=== PATIENT | male | born 1970 | race Caucasian/White ===

== ENCOUNTER → 2020-01-29 | Outpatient (CLI) | payer BC ==
--- NOTE | 2020-01-29 13:06 | RADIOLOGY REPORT (SQ) ---
EXAM DESCRIPTION: SKULL 1-3 VIEWS IMAGES COMPLETED DATE/TIME: 01/29/2020 12:47 pm REASON FOR STUDY: metel screening for MRI M54.5 LOW BACK PAIN COMPARISON: None. TECHNIQUE: PA, Chary's, right and left lateral views. LIMITATIONS: None. FINDINGS: SKULL: Sutures are normal. No skull fractures. OTHER: No radiopaque foreign bodies in or near the orbits. IMPRESSION: No foreign bodies. TECHNICAL DOCUMENTATION: JOB ID: [id number] 2010 [employer]- All Rights Reserved Reading location - IP/workstation name: [email or web address]
--- NOTE | 2020-01-29 16:04 | RADIOLOGY REPORT (SQ) ---
EXAM DESCRIPTION: MRI LUMBAR SPINE WITHOUT IMAGES COMPLETED DATE/TIME: 01/29/2020 1:28 pm REASON FOR STUDY: M54.5 LOW BACK PAIN M54.5 LOW BACK PAIN COMPARISON: None. TECHNIQUE: Sagittal and Axial imaging includes T1, T2, STIR and gradient echo sequences. Coronal T2/ HASTE imaging. LIMITATIONS: None. FINDINGS: VISUALIZED UPPER ABDOMEN: Limited evaluation. No acute or suspicious findings suggested. SEGMENTATION: No transitional anatomy. The lowest well-developed disc space is labeled L5-S1. ALIGNMENT: Anatomic. VERTEBRAE: Intact. BONE MARROW: No mid marrow edema or marrow replacing process. There is chronic Modic type endplate c hanges greatest at L5-S1. DISC SIGNAL: Multilevel disc desiccation greatest at L2-3, L3-4 and L5-S1. POSTERIOR ELEMENTS: Generally intact. No pars defect evident. HARDWARE: None in the spine. CORD AND CONUS: Normal in size and signal intensity. Conus medullaris terminates at L1-2. SOFT TISSUES: No aortic aneurysm seen. No bulky retroperitoneal adenopathy or mass. No paraspinal mas s or fluid. L1-L2: No significant spinal stenosis or exit foraminal stenosis. L2-L3: Disc desiccation and height loss with Broad-based circumferential disc bulge without high-gra de spinal canal stenosis. There is lateral recess narrowing with contact of the traversing nerve vaishnavi ts on the left. Mild bilateral neural foraminal narrowing secondary to disc disease. L3-L4: Disc desiccation height loss with Broad-based circumferential disc bulge with left paracentral component. There is moderate spinal canal stenosis and bilateral lateral recess narrowing with cont act of the bilateral traversing nerve roots. There is moderate bilateral neural foraminal narrowing secondary to disc disease. L4-L5: Broad-based circumferential disc bulge without significant spinal canal stenosis. Mild-to-mod erate left and moderate right neural foraminal narrowing secondary to disc and the set disease. L5-S1: Disc desiccation and height loss with broad circumferential disc. No high-grade spinal canal stenosis. There is moderate left neural foraminal narrowing secondary to far lateral disc component. Mild right neural foraminal narrowing. LOWER THORACIC: Incompletely imaged. No stenosis seen. SACRUM: Visualized upper sacrum intact. OTHER: No other significant findings. IMPRESSION: 1. No evidence of acute bony abnormality of the lumbar spine. 2. Multilevel degenerative disc disease greatest at L3-4 with resultant moderate spinal canal stenos is and bilateral lateral recess narrowing with contact of the traversing nerve roots. Moderate assoc iated bilateral neural foraminal narrowing secondary to disc disease. 3. Additional multilevel degenerative changes with level specific findings as above. TECHNICAL DOCUMENTATION: JOB ID: [id number] 2010 [employer]- All Rights Reserved Reading location - IP/workstation name: [email or web address]
== END ==
LOC: RAD 12:24
PROVIDERS: ATTEND Physician Assistant
DX: M51.36 Other intervertebral disc degeneration, lumbar region (principal); M54.5 Low back pain
CPT/HCPCS: 70250; 72148

== ENCOUNTER → 2020-04-22 | Outpatient (CLI) | payer BC ==
--- NOTE | 2020-04-23 08:50 | RADIOLOGY REPORT (SQ) ---
EXAM DESCRIPTION: MRI LT LOWER EXTREMITY COMBO IMAGES COMPLETED DATE/TIME: 04/22/2020 5:00 pm REASON FOR STUDY: (M20.22)OTHER SPECIFIED INJURIES OF UNSPECIFIED FOOT, INIT ENCNTR S99.829A OTHER SPECIFIED INJURIES OF UNSPECIFIED FOOT, INIT M20.22 HALLUX RIGIDUS, LEFT FOOT M25.571 PAIN IN RIGH T ANKLE AND JOINTS OF RIGHT FOOT COMPARISON: None. TECHNIQUE: Multiplanar imaging of the left foot to include T1-weighted, postcontrast T1-weighted, an d T2-weighted images. CONTRAST TYPE AND DOSE: 20 mL Prohance. RENAL FUNCTION: Not indicated. ACR Type II contrast agent associated with few, if any, unconfounded cases of NSF LIMITATIONS: None. FINDINGS: BONE MARROW: Normal. SOFT TISSUES: No mass or ligament tear. No fluid collection or hematoma. OTHER: Mild degenerative changes in the 1st metatarsophalangeal joint. IMPRESSION: No acute findings. TECHNICAL DOCUMENTATION: JOB ID: [id number] 2010 [employer]- All Rights Reserved Reading location - IP/workstation name: [email or web address]
== END ==
LOC: RAD 15:26
PROVIDERS: ATTEND Podiatrist Foot & Ankle Surgery
DX: M20.22 Hallux rigidus, left foot (principal); M25.571 Pain in right ankle and joints of right foot; M25.671 Stiffness of right ankle, not elsewhere classified
CPT/HCPCS: 82565; 73720; A9576